=== PATIENT | male | born 1975 | race African-American/Black ===

== ENCOUNTER 2016-10-08 10:24 | Outpatient (CLI) | payer BC, OTHER ==
[2016-10-08 11:52] LABS: #Basophils 0.1 thou/uL (0.0-0.2); #Eosinphils 0.2 thou/uL (0.0-0.7); #Lymphocytes 3.5 thou/uL (1.20-3.40); #Monocytes 0.4 thou/uL (0.11-0.59); #Neutrophils 3.9 thou/uL (1.40-6.50); %Basophils 1.5 % (0.0-1.0); %Eosinophils 1.9 % (0.0-10.0); %Monocytes 4.3 % (0.0-10.0); Mean Platelet Volume 9.3 fL (7.4-10.4)
[2016-10-08 12:11] LABS: ALT (SGPT) 76 U/L (0-55); AST (SGOT) 30 U/L (5-34); Alkaline Phosphatase 84 U/L (40-150); Anion Gap 15 mmol/L (10-20); BUN (Urea Nitrogen) 13 mg/dL (8.9-20.6); Bilirubin, Total 0.2 mg/dL (0.2-1.2); Calc. Creatinine Clearance 0 mL/min (70-130); Calcium 10.3 mg/dL (7.8-10.44); Carbon Dioxide 26 mmol/L (22-29); Chloride 105 mmol/L (98-107); Estimated GFR-MDRD Greater than 90; Globulin 3.6 g/dL (2.4-3.5); LDL Cholesterol, Calculated 138 mg/dL; Protein, Total 8.3 g/dL (6.0-8.3)
== END 2016-10-08 10:25 | disposition home or self-care (01) ==
LOC: HPCALD 10:24
PROVIDERS: ATTEND Family Medicine
DX: Z13.6 Encounter for screening for cardiovascular disorders (principal); F41.9 Anxiety disorder, unspecified; I10 Essential (primary) hypertension; N52.9 Male erectile dysfunction, unspecified
CPT/HCPCS: 36415; 80053; 80061; 84403; 84443; 85025